=== PATIENT | male | born 1940 | race Caucasian/White ===

== ENCOUNTER → 2022-04-18 | Outpatient (CLI) | payer MEDICARE ==
[~2022-04-18] MED LIST: ASPIRIN E.C.325 MG PO; B121000 MCG/1 IM; COUMADIN2.5 M1 PO; COUMADIN5 M2 PO; LASIX20 MG PO; LASIX40 MG PO; LEVOFLOXACIN750 M2 PO; LISINOPRIL10 M1 PO; LISINOPRIL20 MG PO; METOPROLOL SUCC25 M2 PO; OCUVITE PRESERV1 TAB PO; SIMVASTATIN40 MG; VENTOLIN,PR2 MG/5 ML PO; VITAMIN B11000 MCG/M IM; ZESTRIL5 MG PO; ZITHROMAX500 MG PO; ZOFRAN ODT4 MG SL
== END | disposition home or self-care (01) ==
LOC: RAD 10:10
PROVIDERS: ATTEND Internal Medicine Nephrology
DX: J43.8 Other emphysema (principal)

== ENCOUNTER → 2022-05-17 | Outpatient (CLI) | payer MEDICARE ==
[2022-05-17 10:38] LABS: CREATININE 4.98 mg/dL (0.70-1.30); POTASSIUM 4.5 mmol/L (3.5-5.1)
[2022-05-17 11:14] LABS: FERRITIN 266.9 ng/mL (22.0-322.0)
[2022-05-18 02:06] LABS: TOTAL PROTEIN, SERUM 6.5 g/dL (6.0-8.5)
[2022-05-18 06:07] LABS: HBSAG Negative (Negative); HEP B CORE AB, IGM Negative (Negative); HEPATITIS C ANTIBODY <0.1 (0.0-0.9)
[2022-05-20 15:06] LABS: ALBUMIN 3.3 g/dL (2.9-4.4); ALPHA-1-GLOBULIN 0.3 g/dL (0.0-0.4); ALPHA-2-GLOBULIN 0.8 g/dL (0.4-1.0); BETA GLOBULIN 0.8 g/dL (0.7-1.3); GAMMA GLOBULIN 1.2 g/dL (0.4-1.8); GLOBULIN, TOTAL 3.2 g/dL (2.2-3.9); M-SPIKE Not Observed g/dL (Not Observed)
[2022-05-21 00:06] LABS: FREE KAPPA LIGHT CHAINS 133.9 mg/L (3.3-19.4); FREE LAMBDA LIGHT CHAINS 72.9 mg/L (5.7-26.3); KAPPA/LAMBDA RATIO 1.84 (0.26-1.65)
[2022-05-21 12:07] LABS: ALBUMIN, URINE 60.6 % (.); ALPHA-1-GLOBULIN, URINE 2.4 % (.); ALPHA-2-GLOBULIN, URINE 10.6 % (.); BETA GLOBULIN, URINE 10.4 % (.); M-SPIKE, % Not Observed % (Not Observed); PROTEIN,TOTAL - URINE RANDOM 48.1 mg/dL (Not Estab.)
[2022-05-21 15:06] LABS: ATYPICAL PANCA <1:20 titer (Neg:<1:20)
== END ==
LOC: LAB 09:28
PROVIDERS: ATTEND Internal Medicine Nephrology
DX: N17.9 Acute kidney failure, unspecified (principal); D64.9 Anemia, unspecified; R53.83 Other fatigue

== ENCOUNTER → 2022-06-13 | Outpatient (CLI) | payer MEDICARE ==
[~2022-06-13] MED LIST changes: +TAMSULOSIN HCL0.4 MG PO
== END | disposition home or self-care (01) ==
LOC: CT 09:22
PROVIDERS: ATTEND Internal Medicine Nephrology
DX: S22.080A Wedge compression fracture of T11-T12 vertebra, initial encounter for closed fracture (principal); S22.070A Wedge compression fracture of T9-T10 vertebra, initial encounter for closed fracture; N13.2 Hydronephrosis with renal and ureteral calculous obstruction; K57.32 Diverticulitis of large intestine without perforation or abscess without bleeding; R91.8 Other nonspecific abnormal finding of lung field; J90 Pleural effusion, not elsewhere classified; I31.39 Other pericardial effusion (noninflammatory); K40.90 Unilateral inguinal hernia, without obstruction or gangrene, not specified as recurrent; I77.82 Antineutrophilic cytoplasmic antibody [ANCA] vasculitis; X58.XXXA Exposure to other specified factors, initial encounter; Y93.89 Activity, other specified; Y92.89 Other specified places as the place of occurrence of the external cause; Y99.8 Other external cause status

== ENCOUNTER 2022-06-17 09:07 | Emergency (ER) | payer MEDICARE ==
[~2022-06-17 09:07] MED LIST changes: -TAMSULOSIN HCL0.4 MG PO
[2022-06-17] MEDS ORDERED: TAMSULOSIN HCL0.4 MG PO (11:19)
== END 2022-06-17 11:36 | disposition left against medical advice (07) ==
LOC: ED 09:07
DX: Z53.21 Procedure and treatment not carried out due to patient leaving prior to being seen by health care provider (principal)

== ENCOUNTER 2022-06-18 08:57 | Emergency (ER) | payer MEDICARE ==
[~2022-06-18] VITALS: Ht 177.8 cm; Wt 81.6 kg
[~2022-06-18 08:57] MED LIST changes: +TAMSULOSIN HCL0.4 MG PO
[2022-06-18 09:45] LABS: BILIRUBIN Negative (Negative); BLOOD 3+ (Negative); CLARITY Clear (Clear); COLOR Yellow (Yellow); GLUCOSE Negative (Negative); KETONE Negative (Negative); LEUKO ESTERASE 1+ (Negative); NITRITE Negative (Negative); SPECIFIC GRAVITY 1.015 (1.001-1.030); UROBILINOGEN 0.2 E.U./dl (0.0-1.0)
[2022-06-18 09:56] LABS: EOS % 0.1 % (1.0-4.0); HEMATOCRIT 35.4 % (42.0-52.0); LYMPH # 0.4 10*3/uL (1.3-4.4); LYMPH % 3.4 % (27.0-41.0); MEAN CELL VOLUME 94.7 fl (80.0-94.0); MEAN CORPUSCULAR HGB 31.3 pg (27.0-31.0); MEAN CORPUSCULAR HGB CONC 33.1 g/dl (33.0-37.0); MEAN PLATELET VOLUME 9.4 fl (9.6-12.3); MONO # 1.1 10*3/uL (0.1-1.0); MONO % 9.3 % (3.0-9.0); NEUT # 9.9 10*3/uL (2.3-7.9); NEUT % 86.7 % (47.0-73.0); PLATELET COUNT AUTOMATED 247 10*3/uL (130-400); RED BLOOD COUNT 3.74 10*6/uL (4.50-5.90); RED CELL DISTRI WIDTH 13.6 % (0-14.5); WHITE BLOOD COUNT 11.5 10*3/uL (4.8-10.8)
[2022-06-18 10:06] LABS: BACTERIA 1+; RBC TNTC rbc/hpf (0-2)
[2022-06-18 10:06] LABS: ACT PARTIAL THROMBO TIME 29.3 SECONDS (20.0-32.1); INTERNATIONAL NORM RATIO 1.6 (2.0-3.5)
[2022-06-18 10:38] LABS: CREATININE 5.22 mg/dL (0.70-1.30); POTASSIUM 4.5 mmol/L (3.5-5.1)
== END 2022-06-18 13:52 | disposition short-term general hospital (02) ==
LOC: ED 08:57
PROVIDERS: Emergency Medicine
DX: N20.1 Calculus of ureter (principal); Z79.01 Long term (current) use of anticoagulants; Z79.899 Other long term (current) drug therapy